=== PATIENT | female | born 1995 | race Caucasian/White ===

== ENCOUNTER → 2021-09-26 11:49 | Day surgery (SDC) | payer MEDICAID, SELFPAY ==
[2021-09-26 11:50] VITALS: BP 116/66; PULSE 125; RESP 18; TEMP 36.6; O2SAT 98; BMI 46.0
[2021-09-26 13:48] VITALS: BP 111/66; PULSE 125; RESP 18; TEMP 36.6; O2SAT 97
== END ==
LOC: GILAB 11:51
PROVIDERS: Visit Provider Family Medicine
DX: O26.893 Other specified pregnancy related conditions, third trimester (principal); Z67.91 Unspecified blood type, Rh negative
CPT/HCPCS: 36415; 36430; 86850; 86900; 90384; 96372

== ENCOUNTER 2021-11-25 04:36 | Inpatient (IN) | payer OTHER, MEDICAID, SELFPAY ==
--- NOTE | 2021-11-22 13:36 | ANES.PREANE2 ---
Pre-Anesthetic Assessment Height/Weight: Height 1.6 m Operation Date: 11/25/21 07:30 Proposed Procedures p Section Repeat With Tubal(Not Applicable) - Nishi Carmona MD Familial anesthetic complications: None Social Tobacco (vapes) and No alcohol Exam alert, oriented x 3, clear to auscultation bilaterally and regular rate & rhythm Airway Mallampati: Class III Dentition: full Pulmonary None reported CV/HEM Hypertension (gestational HTN - so far not requiring medications) and None reported None reported Hepatic None reported GI Gastroesophageal Reflux Disease Metabolic None reported Musc/skel None reported Neuropsych None reported Anesthetic Plan ASA status: 2 Anesthesia: Regional (specify below) Other: spinal Risk of > 500 ml blood loss (7ml/kg in children): Yes, adequate IV access and fluids planned Medications/Allergies Home Medications Medication Instructions Recorded Confirmed Last Taken Type PNV 153-FA 400 mcg-om3 35 mg-dha 1 tab PO DAILY 09/26/21 09/26/21 09/26/21 History 25 mg-epa 5 mg-fish oil chew tablet ( Gummies) hydroxyzine HCl 25 mg tablet 25 mg PO TID PRN 09/26/21 09/26/21 09/26/21 History ondansetron 4 mg disintegrating 4 mg PO Q8H 09/26/21 09/26/21 09/26/21 History tablet Allergies Allergy/AdvReac Type Severity Reaction Status Date / Time No Known Allergies Allergy Verified 09/26/21 14:47 Data Anesthesia Cardiac Studies: No Data to Display
[2021-11-25] VITALS (46 sets, daily range): BP systolic 99–136; BP diastolic 44–90; PULSE 53–82; RESP 14–18; TEMP 36.4–36.6; O2SAT 97–100; BMI 47.1
[2021-11-25 05:43] LABS: Basophils % 0.3 %; Eosinophils % 0.3 %; Hematocrit 29.6 % (37.0-47.0); Hemoglobin 10.3 g/dL (11.5-15.3); Lymphocytes # 2.1 10^3/uL (0.8-4.8); Lymphocytes % 27.6 %; Mean Corpuscular HGB Conc 34.8 g/dL (30.0-36.0); Mean Corpuscular Hemoglobin 30.6 pg (28.0-34.0); Mean Corpuscular Volume 87.8 fl (81-99); Mean Platelet Volume 11.8 fL (7.4-10.4); Monocytes # 0.6 10^3/uL (0.2-0.9); Monocytes % 7.1 %; Neutrophils # 4.97 10^3/uL (1.8-7.7); Neutrophils % 64.3 %; Nucleated Red Blood Cells % 0 %; Platelet Count 195 10^3/cmm (130-400); Red Blood Count 3.37 10^6/uL (4.1-5.3); Red Cell Distribution Width 13.9 % (12.1-15.1); White Blood Count 7.7 10^3/uL (4.0-10.0)
[2021-11-25] MEDS: lactated ringers 1,000 ML 999 ML IV (06:03)
[2021-11-25] MEDS: metoclopramide 5 mg/mL SDV 2 mL 10 MG IVP (06:55)
[2021-11-25] MEDS: citric acid-sodium citrate 30 mL UDC PO (06:55)
[2021-11-25] MEDS: famotidine 20 mg/2 mL INJ IVP (06:56)
--- NOTE | 2021-11-25 08:45 | ANE.PACU2 ---
Documented by User: Derek Varela CRNA 11/25/21 08:45 Inpatient post-anesthesia follow up: Airway intact: Yes Vital signs: Temperature Pulse Rate 72 Respiratory Rate 18 Blood Pressure 125/80 Pulse Oximetry 100 Oxygen Delivery Me thod Room Air Oxygen Flow Rate Fraction of Inspir ed Oxygen Hydration adequate: Yes Nausea and vomiting: No Pain level: 1 Mental status: Baseline
--- NOTE | 2021-11-25 08:48 | PM.OPHPUD ---
Labor & Delivery H&P Update Date of Procedure: November 25, 2021 Date H&P Performed: 11/21/21 Admission Diagnosis: Planned procedure: Operation Date: 11/25/21 07:30 Proposed Procedures p Section Repeat With Tubal(Not Applicable) - Nishi Carmona MD
--- NOTE | 2021-11-25 08:49 | PM.OP ---
Operative Report Date of procedure: November 25, 2021 Pre-op diagnosis: IUP at 39 weeks gestation History of prior section Desired surgical sterilization Procedure done: Repeat low transverse section Via Pfannenstiel skin incision Bilateral tubal ligation Specimens removed/disposition: Vertex male infant weight 7 pounds 4 ounces, Apgars 9 and 9 Surgeon: Nishi Carmona MD Anesthesia: Other (Spinal) Estimated blood loss (mL): 500 IV fluids (mL): 1,800 Urine output (mL): 25 Complications: None Procedure: After informed consent the patient was taken to the OR where spinal anesthesia was administered. She was prepped and draped in normal sterile fashion in dorsal supine position with a left lateral tilt. A Pfannenstiel skin incision was made and carried through to the underlying layer of fascia sharply. The fascial incision was then extended laterally using the Mayos. The fascia was then grasped with Estephanie clamps and the underlying rectus muscles were dissected off taking care to avoid injury to the underlying tissue. The peritoneum was then entered bluntly using a hemostat. The incision site was manually stretched. The peritoneum was taken down using the Mayos to provide extra room. The bladder blade was then inserted The vesicouterine peritoneum was identified and entered sharply using the Metzenbaums. The bladder flap was created digitally. The bladder blade was then reinserted. Uterine incision was made in a transverse fashion in the lower uterine segment. Amniotic rupture of membranes was performed using an Allis clamp and a copious amount of clear fluid was noted. The infant was delivered headfirst atraumatically with bulb suction of the mouth and nares at delivery. The cord was clamped and cut and the infant was handed to the waiting pediatric nurse. Cord blood was obtained. The placenta was delivered using fundal pressure. The uterus was then exteriorized from the abdomen and a dry sponge was used to clear the uterus of clots and debris. The bladder blade was reinserted and the uterine incision was repaired using 0 chromic in a running locked fashion. A second layer of the same suture was used in an imbricating manner. Excellent hemostasis was obtained. The right fallopian tube was then grasped with a [place]. It was very adhesed to adjoining vessels, the uterus, and the ovary. Only proximal portion was able to be ligated and excised. The cut portions of the tube were coagulated using the Bovie. Tubal ostia were identified. A segment of tube was sent to pathology. The same procedure was then performed on the left side. Once again the left tube was scarred to the uterus adjoining vessels and the ovary. A proximal portion of the tube was ligated and excised. Tubal ostia were visualized. Segment of the tube was sent to pathology. Cut portions of the tube were coagulated using the Bovie. After hemostasis was verified the uterus was returned to the abdomen Irrigation was used to clear the gutters of clots and debris and the uterine incision was reinspected for hemostasis. The peritoneum was pretty much obliterated on the left side. The rectus muscles were gently reapproximated using 4-0 Vicryl in a running fashion. The bed fascial tissue was inspected for hemostasis and any small bleeders were coagulated using the Bovie. The fascia was then reapproximated using 0 Vicryl in a running fashion. The subcutaneous tissue was then irrigated and any small bleeders were coagulated using the Bovie. The subcutaneous tissue was then reapproximated using 4-0 Vicryl in a running fashion. The skin was then reapproximated using 4-0 Vicryl in a running fashion on a Axel needle. Steri-Strips and a pressure bandage were applied and patient went to recovery in good condition. Sponge instrument and needle counts were correct.
[2021-11-25] MEDS: dextrose 5%-lactated ringers 1,000 ML 125 ML IV ×2 (10:41→18:39)
[2021-11-25] MEDS: acetaminophen 325 mg Tablet 650 MG PO (10:41)
[2021-11-25] MEDS: docusate sodium 100 mg Capsule PO ×2 (10:41→17:21)
[2021-11-25] MEDS: ketorolac 30 mg/mL INJ IVP ×2 (14:59→20:55)
[2021-11-25] MEDS: HYDROcodone-acetaminophen 5-325 mg Tablet PO (17:20)
[2021-11-25] MEDS: ferrous sulfate EC 325 mg Tablet PO (17:20)
[2021-11-25 23:04] LABS: Hematocrit 25.8 % (37.0-47.0); Hemoglobin 8.8 g/dL (11.5-15.3); Mean Corpuscular HGB Conc 34.1 g/dL (30.0-36.0); Mean Corpuscular Hemoglobin 30.3 pg (28.0-34.0); Mean Platelet Volume 11.7 fL (7.4-10.4); Platelet Count 146 10^3/cmm (130-400); Red Cell Distribution Width 13.9 % (12.1-15.1); White Blood Count 8.5 10^3/uL (4.0-10.0)
[2021-11-26] MEDS: acetaminophen 325 mg Tablet 650 MG PO ×3 (02:06→22:08)
[2021-11-26 03:00] VITALS: BP 122/77; PULSE 82; RESP 15; O2SAT 98
[2021-11-26] MEDS: ketorolac 30 mg/mL INJ IVP (03:03)
[2021-11-26] MEDS: ferrous sulfate EC 325 mg Tablet PO ×2 (09:48→18:53)
[2021-11-26] MEDS: docusate sodium 100 mg Capsule PO ×2 (09:49→18:54)
[2021-11-26] MEDS: prenatal vitamin Capsule 1 CAP PO (09:49)
[2021-11-26 09:58] VITALS: BP 123/80; PULSE 79; RESP 16; TEMP 36.7; O2SAT 98
[2021-11-26] MEDS: lanolin oint 7 gm 1 APPLIC TOPICAL (10:43)
[2021-11-26 14:25] VITALS: PULSE 90; RESP 16; O2SAT 98
[2021-11-26] MEDS: HYDROcodone-acetaminophen 5-325 mg Tablet PO (15:28)
[2021-11-26] MEDS: simethicone 80 mg Chew PO (15:30)
[2021-11-26 16:28] VITALS: BP 143/84; PULSE 96; RESP 18; TEMP 36.7; O2SAT 98
--- NOTE | 2021-11-26 16:48 | PM.PN ---
Subjective Subjective: Postop day #1 doing well., Pain controlled, ambulating, passing flatus, tolerating a regular diet, decreased vaginal bleeding. Vitals/I&O/Wt Last Vital Signs Temp 98.1 F 11/26/21 16:28 Pulse 96 11/26/21 16:28 Resp 18 11/26/21 16:28 BP 143/84 11/26/21 16:28 Pulse Ox 98 11/26/21 16:28 11/26/21 11/26/21 11/26/21 06:59 14:59 22:59 Output Total 900 / 900 Balance -900 / -900 Weight last 48 hrs Weight 120.656 kg Physical Exam Const: COMMON NORMALS: no acute distress, healthy appearing and alert HENMT: COMMON NORMALS: normocephalic HEAD & SCALP: normocephalic Resp: COMMON NORMALS: normal respiratory effort Cardio: COMMON NORMALS: regular rate and regular rhythm RATE: regular rate RHYTHM: regular rhythm GI: OTHER: Soft, appropriate postoperative tenderness, incision clean dry and intact. Extremity: NARRATIVE EXTREMITY EXAM: 2+ pitting edema, no calf tenderness Neuro: SENSORIUM/ORIENTATION: Yes alert Urinary Catheter Management: Arredondo: Cath Placed During This Visit: yes, but has since been removed by the nurse Reason for Continuing Indwelling Catheter: Decision to DC Catheter Urinary Catheter Date of Insertion: 11/25/21 Urinary Catheter Time of Insertion: 07:30 Date Urinary Catheter Removed: 11/25/21 Time Urinary Catheter Discontinued: 22:50 Data : 11/25/21 22:50 A&P Assessment and plan (1) Status post repeat low transverse section: Postop day #1, repeat low transverse section and bilateral tubal ligation. Routine postoperative and care Status: Acute Attestations Medical Necessity Statement*: Routine postoperative and care Coding Level of Care Code Acute Building Materials Sales Attendant for Chg Fwd Diagnoses Status post repeat low transverse section Z98.891
[2021-11-26] MEDS: ibuprofen 800 mg tablet PO (18:54)
[2021-11-26 21:47] VITALS: BP 124/75; PULSE 90; RESP 16; TEMP 36.7
[2021-11-27 05:30] VITALS: BP 126/82; PULSE 82; TEMP 36.6; O2SAT 98
[2021-11-27] MEDS: HYDROcodone-acetaminophen 5-325 mg Tablet PO (05:31)
--- NOTE | 2021-11-27 05:44 | P.DS_ITS ---
Discharge Providers Date of Admission: 11/25/21 04:36 Date of Discharge: November 27, 2021 Attending Provider at Admission: Nishi Carmona MD Attending Provider at Discharge: Nishi Carmona MD Diagnoses at Discharge Discharge Diagnosis (1) Status post repeat low transverse section: Status: Acute Reason for Visit Reason for Visit: Hospital Course Hospital Course This is a 26-year-old G2 now P2 who underwent repeat section and bilateral tubal ligation. There were no complications during the procedure or postoperatively. She was ambulating, tolerating a regular diet, passing flatus, had good pain control and was comfortable with discharge home. Physical Exam Narrative: Alert and oriented, running about the room, heart regular rate and rhythm, lungs clear to auscultation bilaterally, abdomen soft, appropriate postoperative tenderness, incision clean dry and intact with Steri-Strips in place. 2-3+ pedal edema, no calf tenderness Urinary Catheter Management: Arredondo: Cath Placed During This Visit: yes, but has since been removed by the nurse Reason for Continuing Indwelling Catheter: Decision to DC Catheter Urinary Catheter Date of Insertion: 11/25/21 Urinary Catheter Time of Insertion: 07:30 Date Urinary Catheter Removed: 11/25/21 Time Urinary Catheter Discontinued: 22:50 Discharge Data Studies Completed and Pending Pending at discharge Category Date Time Status Pathology: Surgical [PTH] Routine Pth 11/26/21 08:53 Received Laboratory Results WBC 8.5 10^3/uL (4.0-10.0) 11/25/21 22:50 RBC 2.90 10^6/uL (4.1-5.3) L 11/25/21 22:50 Hgb 8.8 g/dL (11.5-15.3) L 11/25/21 22:50 Hct 25.8 % (37.0-47.0) L 11/25/21 22:50 MCV 89.0 fl (81-99) 11/25/21 22:50 MCH 30.3 pg (28.0-34.0) 11/25/21 22:50 MCHC 34.1 g/dL (30.0-36.0) 11/25/21 22:50 RDW 13.9 % (12.1-15.1) 11/25/21 22:50 Plt Count 146 10^3/cmm (130-400) 11/25/21 22:50 MPV 11.7 fL (7.4-10.4) H 11/25/21 22:50 Neut % (Auto) 64.3 % 11/25/21 05:00 Lymph % (Auto) 27.6 % 11/25/21 05:00 [place] % (Auto) 7.1 % 11/25/21 05:00 Eos % (Auto) 0.3 % 11/25/21 05:00 Baso % (Auto) 0.3 % 11/25/21 05:00 Neut # (Auto) 4.97 10^3/uL (1.8-7.7) 11/25/21 05:00 Lymph # (Auto) 2.1 10^3/uL (0.8-4.8) 11/25/21 05:00 [place] # (Auto) 0.6 10^3/uL (0.2-0.9) 11/25/21 05:00 Eos # (Auto) 0.0 10^3/uL (0.0-0.8) 11/25/21 05:00 Baso # (Auto) 0.0 10^3/uL (0.0-0.1) 11/25/21 05:00 Nucleated RBC % (auto) 0 % 11/25/21 05:00 Nucleated RBCs # 0.0 /100WBC 11/25/21 05:00 Vitals Last Vital Signs Temp 98.0 F 11/26/21 21:47 Pulse 90 11/26/21 21:47 Resp 16 11/26/21 21:47 BP 124/75 11/26/21 21:47 Pulse Ox 98 11/26/21 16:28 O2 Del Method 11/26/21 16:28 Discharge Plan Discharge Patient Disposition: Home Condition: Stable Prescriptions: New docusate sodium 100 mg Capsule 100 mg PO BID Qty: 60 1RF hydrocodone-acetaminophen 5-325 mg Tablet 1 - 2 tab PO Q4H PRN (Reason: Moderate To Severe Pain) Qty: 14 0RF ibuprofen 800 mg Tablet 800 mg PO TID PRN (Reason: pain) Qty: 30 0RF Continued hydroxyzine HCl 25 mg tablet 25 mg PO TID PRN (Reason: Sleep) ondansetron 4 mg Tablet,Disintegrating 4 mg PO Q8H Gummies 400 mcg-35 mg- 25 mg-5 mg Tablet,Chewable 1 tab PO DAILY Discharge Orders: Discharge Order (Routine); Ordered 11/27/21 Ordered By: Nishi Carmona Referrals: Nsihi Carmona MD [Physician] - 12/09/21 3:00 pm Discharge Diet: Usual diet Discharge Activity: Limit activity as instructed Patient Instructions: Hydrocodone/Acetaminophen (By mouth), Ibuprofen (By mouth), Laxative, Stool Softeners (By mouth), Depression (DC), Pain Management After Surgery (DC), OB Discharge Report, OB Care at Home, Opioid Safety, Abnormal Bleeding Activity Restrictions/Additional Instructions: Pelvic rest for 6 weeks Discharge Attestations Time Spent in Discharge Care*: less than 30 min Quality Metrics Clinical Quality Measures [ No reported AMI, CVA or VTE this stay] Coding Level of Care Code Acute Chg FW DC note Diagnoses Status post repeat low transverse section Z98.891
[2021-11-27] MEDS: prenatal vitamin Capsule 1 CAP PO (08:36)
[2021-11-27] MEDS: docusate sodium 100 mg Capsule PO (08:36)
[2021-11-27] MEDS: ibuprofen 800 mg tablet PO (08:36)
[2021-11-27] MEDS: ferrous sulfate EC 325 mg Tablet PO (08:36)
[2021-11-27 09:30] VITALS: BP 144/83; PULSE 97; RESP 18; TEMP 36.8; O2SAT 98
== END 2021-11-27 09:30 | disposition home or self-care (01) | DRG 785 ==
PROVIDERS: Admitting Provider Family Medicine; Visit Provider Family Medicine
PROC: 10D00Z1 Extraction of Products of Conception, Low, Open Approach (ICD-10-PCS; CPT 59514; principal; 2021-11-25 07:30)
DX: O34.211 Maternal care for low transverse scar from previous cesarean delivery (principal); Z3A.39 39 weeks gestation of pregnancy; Z37.0 Single live birth; O99.334 Smoking (tobacco) complicating childbirth; F17.210 Nicotine dependence, cigarettes, uncomplicated; O99.344 Other mental disorders complicating childbirth; O99.214 Obesity complicating childbirth; E66.01 Morbid (severe) obesity due to excess calories; F41.9 Anxiety disorder, unspecified; F32.A Depression, unspecified; Z30.2 Encounter for sterilization
CPT/HCPCS: 36415; 51702; 59025; 85025; 85027; 88302; 99211; J1885; J2274; J2370; J2765; J3490; J7030